=== PATIENT | female | born 1950 | race Caucasian/White ===

== ENCOUNTER 2023-05-21 07:05 | Day surgery (SDC) | payer MEDICAID ==
[~2023-05-21] VITALS: Ht 152.4 cm; Wt 74.4 kg
[2023-05-21] MEDS ORDERED: fentaNYL CITRATE/PF 100 MCG/2 ML AMP ONE (07:46)
[2023-05-21] MEDS ORDERED: DIPHENHYDRAMINE INJ 50 MG/ML VIAL ONE (07:46)
[2023-05-21] MEDS ORDERED: ONDANSETRON HCL 4 MG/2 ML VIAL ONE (07:47)
[2023-05-21 09:42] VITALS: O2SAT 97
[2023-05-21] MEDS: MIDAZOLAM HCL 5 MG/5 ML VIAL ONE ×3 (10:02→10:08)
[2023-05-21 14:23] VITALS: BP_SYST 125; PULSE 72; RESP 16
== END 2023-05-21 11:00 | disposition home or self-care (01) ==
LOC: SDS 07:05 → SMU 07:06 → SDS 11:00
PROVIDERS: ATTEND Internal Medicine
DX: M51.16 Intervertebral disc disorders with radiculopathy, lumbar region (principal); M79.10 Myalgia, unspecified site; M96.1 Postlaminectomy syndrome, not elsewhere classified; I10 Essential (primary) hypertension; E11.9 Type 2 diabetes mellitus without complications; Z98.1 Arthrodesis status; Z79.4 Long term (current) use of insulin; Z79.899 Other long term (current) drug therapy
CPT/HCPCS: 62323; 82962; J2250; J3010; 76000; J1200; J2405